=== PATIENT | male | born 1995 | race Caucasian/White ===

== ENCOUNTER 2016-07-02 20:46 | Emergency (ER) | payer MEDICARE, OTHER ==
[~2016-07-02] VITALS: Ht 160 cm; Wt 53.5 kg
[~2016-07-02 20:46] MED LIST: AZIT250T PO; FAMO-63 PO; NAPR375T3 PO; PRED20TA PO; PROAIR HFA8.5 GM INH; PSEU120T58 PO; SULF1TAB24 PO; TRAM-29 PO
[2016-07-02 21:00] VITALS: BP 115/68
--- NOTE | 2016-07-02 21:24 | PHYS DOC ---
Past Medical History Past Medical History: Asthma, Other Additional Past Medical Histor: explosive rage disorder, adhd, lead poison (hx ) poss MR? Past Surgical History: Tonsillectomy, Other Additional Past Surgical Histo: ADENOIDECTOMY, fundoplication Alcohol Use: Occasionally Drug Use: Marijuana Adult General Chief Complaint Chief Complaint: HEADACHE HPI HPI Patient is a 21 year old presents emergency department stating that he is having a severe headache in which he does note suffered from headaches in the past. He describes the headache as pressure type feeling. Denies injury or trauma. He states that this headache started yesterday. He has not taken anything for the pain and discomfort. He does state that the lights do bother his head. He denies any visual difficulty. He denies any nausea vomiting. Patient does state when he stands that it increases his headache to become worse as well. Review of Systems Review of Systems Constitutional: Denies fever or chills [] Eyes: Denies change in visual acuity, redness, or eye pain [] HENT: Denies nasal congestion or sore throat [] Respiratory: Denies cough or shortness of breath [] Cardiovascular: No additional information not addressed in HPI [] GI: Denies abdominal pain, nausea, vomiting, bloody stools or diarrhea [] : Denies dysuria or hematuria [] Musculoskeletal: Denies back pain or joint pain [] Integument: Denies rash or skin lesions [] Neurologic: headache, denies focal weakness or sensory changes [] Current Medications Current Medications Current Medications Medications (Trade) Dose Ordered Sig/Ramakrishna Start Time Stop Time Status Last Admin Dose Admin Acetaminophen (Tylenol) 650 mg 1X ONCE 07/02/16 21:30 07/02/16 21:31 DC 07/02/16 21:41 650 MG Diphenhydramine HCl (Benadryl) 25 mg 1X ONCE 07/02/16 21:30 07/02/16 21:31 DC 07/02/16 21:41 25 MG Metoclopramide HCl (Reglan) 10 mg 1X ONCE 07/02/16 21:30 07/02/16 21:31 DC 07/02/16 21:41 10 MG Allergies Allergies Allergies Coded Allergies Type Severity Reaction Last Updated Verified bethanechol Allergy Intermediate 11/14/14 Yes cisapride Allergy Intermediate 11/14/14 Yes Physical Exam Physical Exam Constitutional: Well developed, well nourished, no acute distress, non-toxic appearance. [] HENT: Normocephalic, atraumatic, bilateral external ears normal, oropharynx moist, no oral exudates, nose normal. Bilateral tympanic membranes appear to be normal. Throat with no erythematous or drainage. No postnasal drip noted. Eyes: PERRLA, EOMI, conjunctiva normal, no discharge. [] Neck: Normal range of motion, no tenderness, supple, no stridor. [] Cardiovascular:Heart rate regular rhythm, no murmur [] Lungs & Thorax: Bilateral breath sounds clear to auscultation [] Skin: Warm, dry, no erythema, no rash. [] Back: No tenderness Extremities: No tenderness, no cyanosis, no clubbing, ROM intact, no edema. [] Neurologic: Alert and oriented X 3, normal motor function, normal sensory function, no focal deficits noted. Cranial nerve II-XII intact Psychologic: Affect normal, judgement normal, mood normal. [] Current Patient Data Vital Signs Vital Signs Date Time Temp Pulse Resp B/P Pulse Ox O2 Delivery O2 Flow Rate FiO2 07/02/16 21:00 98.1 91 16 97 Room Air 98.1 EKG EKG [] Radiology/Procedures Radiology/Procedures [address] [place] [address] IMAGING REPORT Signed PATIENT: DIANA AWAN ACCOUNT: [id number] : 1995 LOCATION: ER AGE: 21 SEX: M EXAM STATUS: REG ER ORD. PHYSICIAN: MIAN JACKSON APRN REASON: severe head ache for the last 2 days PROCEDURE: HEAD WO CONTRAST PROCEDURE CT Head without contrast. HISTORY Headaches for [address] head was obtained. One or more of the following individualized dose reduction techniques were utilized for this exam: 1. Automated exposure control. 2. Adjustment of the mA and/or kV according to patient's size. 3. Use of iterative reconstruction technique. COMPARISON October 25, 2011. FINDINGS The ventricles are normal in size and configuration. There is no intracranial hemorrhage or extra-axial fluid collection. There is no mass effect or midline shift. Pinzon-white differentiation is preserved. There is no depressed skull fracture. The included paranasal sinuses and mastoid air cells are clear. IMPRESSION No acute intracranial findings. Electronically signed by: Sid Zelaya MD (Jul 02, 2016 22:10:48) DICTATED and SIGNED BY: SID ZELAYA MD DATE: 07/02/168 CC: MIAN JACKSON APRN; UNKNOWN PCP NAME ~ [] Course & Med Decision Making Course & Med Decision Making Pertinent Labs and Imaging studies reviewed. (See chart for details) Patient was provided with Tylenol, Benadryl and Reglan here in the emergency department. Patient states his headache is much better. CT scan was negative. Recommended patient to go home and rest in quiet dark environment. We'll provide him with a prescription for Reglan. Explained to parent at bedside as well as patient that he can take Benadryl every 6 hours and that he can take Tylenol every 4-6 hours not to exceed 4 g in a 24-hour. Parent and patient agree with discharge instructions treatment regimens and follow-up recommendations. Also recommended patient to avoid watching TV using any laptop devices or any text messaging as this may increase headaches. Patient parent agree with discharge instructions signs and symptoms to return back to emergency department as been provided. [] Dragon Disclaimer Dragon Disclaimer This electronic medical record was generated, in whole or in part, using a voice recognition dictation system. Departure Departure Impression: Primary Impression: Head ache Disposition: HOME, SELF-CARE Condition: STABLE Referrals: NO PCP (PCP) Patient Instructions: General Headache Without Cause, [id number] Additional Instructions: Home to rest in quiet dark environment. No use of cell phone's, text messaging and laptop computers or watching television as this may increase the headaches. Tylenol every 4-6 hours as needed for pain and discomfort. Benadryl may be also be taken every 4-6 hours as medication will cause drowsiness do not take any be alert and oriented. Medication as prescribed. He may also alternate Tylenol with ibuprofen as needed for pain and discomfort. Drink plenty of fluids. Follow-up to primary care physician in the next 5-7 days. Return back to emergency department for signs and symptoms of become worse. Scripts Metoclopramide Hcl (Reglan)10 Mg Tablet1 Tab PO TID PRN NAUSEA #90 TAB Prov:MIAN JACKSON APRN 07/02/16 MIAN JACKSON APRN Jul 02, 2016 21:24
[2016-07-02] MEDS ORDERED: ACETAMINOPHEN 325 MG TABLET. PO ONE (21:30)
[2016-07-02] MEDS ORDERED: DIPHENHYDRAMINE HCL 25 MG CAPSULE PO ONE (21:30)
[2016-07-02] MEDS ORDERED: METOCLOPRAMIDE 10 MG TABLET PO ONE (21:30)
--- NOTE | 2016-07-02 22:12 | RAD ---
PROCEDURE CT Head without contrast. HISTORY Headaches for [address] head was obtained. One or more of the following individualized dose reduction techniques were utilized for this exam: 1. Automated exposure control. 2. Adjustment of the mA and/or kV according to patient's size. 3. Use of iterative reconstruction technique. COMPARISON October 25, 2011. FINDINGS The ventricles are normal in size and configuration. There is no intracranial hemorrhage or extra-axial fluid collection. There is no mass effect or midline shift. Pinzon-white differentiation is preserved. There is no depressed skull fracture. The included paranasal sinuses and mastoid air cells are clear. IMPRESSION No acute intracranial findings. Electronically signed by: Sid Zelaya MD (Jul 02, 2016 22:10:48)
[2016-07-02] MEDS ORDERED: METO10TA81 PO (22:20)
== END 2016-07-02 22:34 | disposition home or self-care (01) ==
LOC: ER 20:46
DX: R51 Headache (principal); J45.909 Unspecified asthma, uncomplicated; F90.9 Attention-deficit hyperactivity disorder, unspecified type; F12.10 Cannabis abuse, uncomplicated; Z88.8 Allergy status to other drugs, medicaments and biological substances
CPT/HCPCS: 70450; 99284; J8597; Q0163

== ENCOUNTER 2016-11-16 11:22 | Emergency (ER) | payer MEDICARE, OTHER ==
[~2016-11-16 11:22] MED LIST changes: +METO10TA81 PO; -TRAM-29 PO; +TRAM-48 PO
[2016-11-16 11:24] VITALS: BP 145/76
[2016-11-16] MEDS ORDERED: PSEUDOEPHEDRINE 30 MG TABLET. PO STA (11:40)
[2016-11-16] MEDS ORDERED: PSEU120T58 PO (11:50)
[2016-11-16] MEDS ORDERED: PRED50TA PO (11:50)
[2016-11-16] MEDS ORDERED: BENZ100C PO (11:50)
--- NOTE | 2016-11-16 11:50 | PHYS DOC ---
Past Medical History Past Medical History: Asthma, Other Additional Past Medical Histor: explosive rage disorder, adhd, lead poison (hx ) poss MR? Past Surgical History: Tonsillectomy, Other Additional Past Surgical Histo: ADENOIDECTOMY, fundoplication Alcohol Use: Occasionally Drug Use: Marijuana Adult General Chief Complaint Chief Complaint: ASTHMA HPI HPI Patient is a 21 year old male with history of smoking who presents today complaining of nasal congestion that began 3 days ago. Patient is also complaining of coughing. Patient states he has used his inhaler but still feels nasally congested. He states the last time he had similar symptoms the had to give him pseudoephedrine. Review of Systems Review of Systems Constitutional: Denies fever or chills [] Eyes: Denies change in visual acuity, redness, or eye pain [] HENT: nasal congestion Respiratory: cough Cardiovascular: No additional information not addressed in HPI [] GI: Denies abdominal pain, nausea, vomiting, bloody stools or diarrhea [] : Denies dysuria or hematuria [] Musculoskeletal: Denies back pain or joint pain [] Integument: Denies rash or skin lesions [] Neurologic: Denies headache, focal weakness or sensory changes [] Endocrine: Denies polyuria or polydipsia [] Current Medications Current Medications Current Medications Medications (Trade) Dose Ordered Sig/Ramakrishna Start Time Stop Time Status Last Admin Dose Admin Benzonatate (Tessalon Perle) 100 mg 1X ONCE 11/16/16 11:45 11/16/16 11:46 UNV Prednisone (Prednisone) 60 mg 1X ONCE 11/16/16 11:45 11/16/16 11:46 UNV Pseudoephedrine HCl (Sudafed) 60 mg 1X STAT 11/16/16 11:40 11/16/16 11:41 UNV Allergies Allergies Allergies Coded Allergies Type Severity Reaction Last Updated Verified bethanechol Allergy Intermediate 11/14/14 Yes cisapride Allergy Intermediate 11/14/14 Yes Physical Exam Physical Exam Constitutional: Well developed, well nourished, no acute distress, non-toxic appearance. [] HENT: Normocephalic, atraumatic, bilateral external ears normal, oropharynx moist, no oral exudates, Patient sounds congested nasally. Eyes: PERRLA, EOMI, conjunctiva normal, no discharge. [] Neck: Normal range of motion, no tenderness, supple, no stridor. [] Cardiovascular:Heart rate regular rhythm, no murmur [] Lungs & Thorax: Bilateral breath sounds clear to auscultation [] Abdomen: Bowel sounds normal, soft, no tenderness, no masses, no pulsatile masses. [] Skin: Warm, dry, no erythema, no rash. [] Back: No tenderness, no CVA tenderness. [] Extremities: No tenderness, no cyanosis, no clubbing, ROM intact, no edema. [] Neurologic: Alert and oriented X 3, normal motor function, normal sensory function, no focal deficits noted. [] Psychologic: Affect normal, judgement normal, mood normal. [] EKG EKG [] Radiology/Procedures Radiology/Procedures [] Course & Med Decision Making Course & Med Decision Making Pertinent Labs and Imaging studies reviewed. (See chart for details) This is a 21-year-old male patient who presents with coughing and nasal congestion. He also has history of asthma. He has been using his inhaler with no relief of nasal congestion. He was discharged with pseudoephedrine, prednisone and Tessalon Perles. Encouraged to consider smoking cessation. Follow -up with PCP in one week. Dragon Disclaimer Dragon Disclaimer This electronic medical record was generated, in whole or in part, using a voice recognition dictation system. Departure Departure Impression: Primary Impression: URI (upper respiratory infection) Additional Impressions: Cough Asthma Disposition: 01 HOME, SELF-CARE Condition: STABLE Referrals: UNKNOWN PCP NAME (PCP) Follow-up with your doctor in one week Patient Instructions: Asthma, Adult, Cough, Adult, [id number], Upper Respiratory Infection, Adult, [id number] Additional Instructions: You were seen with symptoms consistent of an upper respiratory infection as well as asthma. Continue using your breathing treatments as prescribed by your doctor. Consider smoking cessation. Use the rest of the prescribed medicines as ordered. Scripts Pseudoephedrine Hcl (PSEUDOEPHEDRINE) 120 Mg Tablet.er 1 TAB PO BID, #30 TAB Prov: MUTUNGA,CATHY TIRE WRAPPER 11/16/16 Prednisone (PREDNISONE) 50 Mg Tablet 1 TAB PO DAILY, #4 TAB Prov: MUTUNGA,CATHY TIRE WRAPPER 17 Benzonatate (TESSALON PERLE) 100 Mg Capsule 1 CAP PO TID, #30 CAP Prov: MUTUNGA,CATHY TIRE WRAPPER 11/16/16 Problem Qualifiers Primary Impression: URI (upper respiratory infection) URI type: unspecified URI Qualified Codes: J06.9 - Acute upper respiratory infection, unspecified Additional Impressions: Asthma Asthma severity: mild intermittent Asthma complication type: uncomplicated Qualified Codes: J45.20 - Mild intermittent asthma, uncomplicated JEANECATHY TIRE WRAPPER Nov 16, 2016 11:50
[2016-11-16] MEDS ORDERED: BENZONATATE 100 MG CAPSULE. PO ONE (12:00)
[2016-11-16] MEDS ORDERED: predniSONE 20 MG TABLET PO ONE (12:00)
== END 2016-11-16 11:55 | disposition home or self-care (01) ==
LOC: ER 11:22
DX: J06.9 Acute upper respiratory infection, unspecified (principal); J45.20 Mild intermittent asthma, uncomplicated; F90.9 Attention-deficit hyperactivity disorder, unspecified type; F12.10 Cannabis abuse, uncomplicated; Z87.891 Personal history of nicotine dependence; Z88.8 Allergy status to other drugs, medicaments and biological substances
CPT/HCPCS: 99284; J7512

== ENCOUNTER 2016-11-24 16:47 | Emergency (ER) | payer MEDICARE, OTHER ==
[~2016-11-24] VITALS: Ht 160 cm; Wt 53.5 kg
[~2016-11-24 16:47] MED LIST changes: +BENZ100C PO; +PRED50TA PO
[2016-11-24 17:07] VITALS: BP 123/73
[2016-11-24] MEDS ORDERED: PRED20TA PO (17:21)
--- NOTE | 2016-11-24 17:21 | PHYS DOC ---
Past Medical History Past Medical History: Asthma, Bipolar, Other Additional Past Medical Histor: ADHD Past Surgical History: Tonsillectomy, Other Additional Past Surgical Histo: FUNDAL SURGERY/STOMACH Alcohol Use: Occasionally Drug Use: Marijuana Adult General Chief Complaint Chief Complaint: SKIN RASH/ABSCESS [facility] Patient is a 21 year old male presents to the emergency department stating that he has a rash on bilateral legs bilateral arms and on his balls. Patient states that the rash developed today. He states he believes that it's poison irma. However he has not been out in the weeds that he can recall. Patient states that he itches and monae. Denies any drainage or discharge coming from the area. Patient denies any fever, chills he denies any shortness of air difficulty breathing. Review of Systems Review of Systems Constitutional: Denies fever or chills [] Eyes: Denies change in visual acuity, redness, or eye pain [] HENT: Denies nasal congestion or sore throat [] Respiratory: Denies cough or shortness of breath [] Cardiovascular: No additional information not addressed in HPI [] GI: Denies abdominal pain, nausea, vomiting, bloody stools or diarrhea [] : Denies dysuria or hematuria [] Musculoskeletal: Denies back pain or joint pain [] Integument: rash denies skin lesions [] Neurologic: Denies headache, focal weakness or sensory changes [] Endocrine: Denies polyuria or polydipsia [] Allergies Allergies Allergies Coded Allergies Type Severity Reaction Last Updated Verified bethanechol Allergy Intermediate 11/14/14 Yes cisapride Allergy Intermediate 11/14/14 Yes Physical Exam Physical Exam Constitutional: Well developed, well nourished, no acute distress, non-toxic appearance. [] HENT: Normocephalic, atraumatic, bilateral external ears normal, oropharynx moist, no oral exudates, nose normal. [] Eyes: PERRLA, EOMI, conjunctiva normal, no discharge. [] Neck: Normal range of motion, no tenderness, supple, no stridor. [] Cardiovascular:Heart rate regular rhythm, no murmur [] Lungs & Thorax: Bilateral breath sounds clear to auscultation [] Skin: Warm, dry, no erythema, red rash noted on bilateral arms that does not appear to be raised does not appear to have any pustulous. Back: No tenderness Extremities: No tenderness, no cyanosis, no clubbing, ROM intact, no edema. [] Neurologic: Alert and oriented X 3, normal motor function, normal sensory function, no focal deficits noted. [] Psychologic: Affect normal, judgement normal, mood normal. [] Current Patient Data Vital Signs Vital Signs Date Time Temp Pulse Resp B/P (MAP) Pulse Ox O2 Delivery O2 Flow Rate FiO2 11/24/16 17:07 98.2 72 18 97 Room Air 98.2 EKG EKG [] Radiology/Procedures Radiology/Procedures [] Course & Med Decision Making Course & Med Decision Making Pertinent Labs and Imaging studies reviewed. (See chart for details) Patient states that he always gets a shot when this occurs. We'll provide him with a Solu-Medrol injection. Recommended Benadryl 25 mg every 6 hours for itching and irritation. Also recommended prednisone. Also recommended keeping the area clean dry and cool. Patient be encouraged follow-up with primary care physician in one week. Since symptoms to return back to emergency department as been provided. Patient agrees with discharge instructions treatment regimens and follow-up recommendations. Patient was provided with answers of all of his questions. [] Dragon Disclaimer Dragon Disclaimer This electronic medical record was generated, in whole or in part, using a voice recognition dictation system. Departure Departure Impression: Primary Impression: Contact dermatitis Disposition: 01 HOME, SELF-CARE Condition: STABLE Referrals: QING MCKOY MD (PCP) Patient Instructions: Contact Dermatitis, [id number] Additional Instructions: Activity as tolerated. Medications as prescribed. Benadryl 25 mg every 6 hours to help with itching and irritation. Keep the areas clean dry and cool. Tylenol or ibuprofen for fever chills or generalized body aches and discomfort. Follow-up to primary care physician next week. Return back to emergency prior signs symptoms become worse. Scripts Prednisone (PREDNISONE) 20 Mg Tablet 40 MG PO DAILY, #14 TAB Prov: MIAN JACKSON APRN 11/24/16 MIAN JACKSON APRN Nov 24, 2016 17:21
[2016-11-24] MEDS ORDERED: methylPREDNISolone SOD SUCC PF 125 MG/2 ML VIAL. IM ONE (17:30)
== END 2016-11-24 17:36 | disposition home or self-care (01) ==
LOC: ER 16:47
DX: L25.9 Unspecified contact dermatitis, unspecified cause (principal); J45.909 Unspecified asthma, uncomplicated; F31.9 Bipolar disorder, unspecified; F12.10 Cannabis abuse, uncomplicated; F90.9 Attention-deficit hyperactivity disorder, unspecified type; Z88.8 Allergy status to other drugs, medicaments and biological substances
CPT/HCPCS: 96372; 99283; J2930

== ENCOUNTER 2016-11-27 17:55 | Emergency (ER) | payer MEDICARE, OTHER ==
[~2016-11-27] VITALS: Ht 160 cm; Wt 53.5 kg
[2016-11-27 18:14] VITALS: BP 115/60
[2016-11-27] MEDS ORDERED: TRIA15OI TP (18:44)
--- NOTE | 2016-11-27 18:44 | PHYS DOC ---
Past Medical History Past Medical History: Asthma, Bipolar, Other Additional Past Medical Histor: ADHD Past Surgical History: Tonsillectomy, Other Additional Past Surgical Histo: FUNDAL SURGERY/STOMACH Alcohol Use: Occasionally Drug Use: Marijuana Adult General Chief Complaint Chief Complaint: WOUND CHECK [facility] HPI Patient is a 21 year old male presents to the emergency department stating that he was seen here 2 days ago for a rash. Patient states he's been taking Benadryl every 4-6 hours. He states his been taken for steroid as prescribed. He states that the rash continues to get worse. Parent comes in with him at this time and states that it spread throughout his body now. He denies any fever , chills or any nausea vomiting. Patient states he does have a follow-up visit with his primary care physician later in the week. Review of Systems Review of Systems Constitutional: Denies fever or chills [] Eyes: Denies change in visual acuity, redness, or eye pain [] HENT: Denies nasal congestion or sore throat [] Respiratory: Denies cough or shortness of breath [] Cardiovascular: No additional information not addressed in HPI [] GI: Denies abdominal pain, nausea, vomiting, bloody stools or diarrhea [] : Denies dysuria or hematuria [] Musculoskeletal: Denies back pain or joint pain [] Integument: Complaint of generalized rash throughout the body. Neurologic: Denies headache, focal weakness or sensory changes [] Endocrine: Denies polyuria or polydipsia [] Allergies Allergies Allergies Coded Allergies Type Severity Reaction Last Updated Verified bethanechol Allergy Intermediate 11/14/14 Yes cisapride Allergy Intermediate 11/14/14 Yes Physical Exam Physical Exam Constitutional: Well developed, well nourished, no acute distress, non-toxic appearance. [] HENT: Normocephalic, atraumatic, bilateral external ears normal, oropharynx moist, no oral exudates, nose normal. [] Eyes: PERRLA, EOMI, conjunctiva normal, no discharge. [] Neck: Normal range of motion, no tenderness, supple, no stridor. [] Cardiovascular:Heart rate regular rhythm, no murmur [] Lungs & Thorax: Bilateral breath sounds clear to auscultation [] Skin: Warm, dry, no erythema, patient with red areas on bilateral arms chest as well. Patient with no raised lesions noted no drainage or discharge noted. Back: No tenderness Extremities: No tenderness, no cyanosis, no clubbing, ROM intact, no edema. [] Neurologic: Alert and oriented X 3, normal motor function, normal sensory function, no focal deficits noted. [] Psychologic: Affect normal, judgement normal, mood normal. [] Current Patient Data Vital Signs Vital Signs Date Time Temp Pulse Resp B/P (MAP) Pulse Ox O2 Delivery O2 Flow Rate FiO2 11/27/16 18:14 98.8 87 16 96 Room Air 98.8 EKG EKG [] Radiology/Procedures Radiology/Procedures [] Course & Med Decision Making Course & Med Decision Making Pertinent Labs and Imaging studies reviewed. (See chart for details) Recommended that the patient continue using the Benadryl 25 mg every 4-6 hours keeping the area clean dry and cool. Pepcid may also be added for a potential allergic reaction. Also recommended continuing with the prednisone. We'll provide her medical and cream. Recommended that he keep his follow-up appointment later in the week with his primary care physician. Patient agrees with discharge instructions, treatment regimens and follow-up recommendations. Signs and symptoms to return back to emergency department has been provided. [] Dragon Disclaimer Dragon Disclaimer This electronic medical record was generated, in whole or in part, using a voice recognition dictation system. Departure Departure Impression: Primary Impression: Contact dermatitis Disposition: 01 HOME, SELF-CARE Condition: STABLE Referrals: QING MCKOY MD (PCP) Patient Instructions: Contact Dermatitis, [id number] Additional Instructions: Continue the medications as prescribed such as Benadryl 25 mg every 4-6 hours. This medication will cause drowsiness do not take any be alert and oriented. Pepcid 20 mg daily. Continue with the prednisone in which you have been provided to days ago. Placed the cream on the body instructed. Follow-up with your primary care physician in the next week. Return back to emergency prior signs symptoms become worse. Keep the areas clean dry and cool. Scripts Triamcinolone Acetonide (TRIAMCINOLONE ACETONIDE 0.1% OINT) 15 Gm Oint...g. 1 SANDER TP BID for WOUND CARE, #1 TUBE MIX WITH EUCERIN DIRECTED BY PHYSICIAN Prov: MIAN JACKSON APRN 11/27/16 MIAN JACKSON APRN Nov 27, 2016 18:44
== END 2016-11-27 19:00 | disposition home or self-care (01) ==
LOC: ER 17:55
DX: L25.9 Unspecified contact dermatitis, unspecified cause (principal); J45.909 Unspecified asthma, uncomplicated; F90.9 Attention-deficit hyperactivity disorder, unspecified type; Z88.8 Allergy status to other drugs, medicaments and biological substances
CPT/HCPCS: 99283

== ENCOUNTER 2017-01-12 05:37 | Emergency (ER) | payer MEDICARE, OTHER ==
[~2017-01-12] VITALS: Ht 160 cm; Wt 53.5 kg
[~2017-01-12 05:37] MED LIST changes: +NAPR-695 PO; -NAPR375T3 PO; +TRIA15OI TP
[2017-01-12 05:54] VITALS: BP 137/83
--- NOTE | 2017-01-12 06:16 | PHYS DOC ---
Past Medical History Past Medical History: Asthma, Bipolar, Other Additional Past Medical Histor: ADHD Past Surgical History: Tonsillectomy, Other Additional Past Surgical Histo: FUNDAL SURGERY/STOMACH Alcohol Use: Occasionally Drug Use: Marijuana Adult General Chief Complaint Chief Complaint: FOOT INJURY PAIN [facility] HPI Patient is a pleasant 21-year-old male initiated for p.m. neuropathy bathtub on the plantar surface of the right foot. He was wearing shoes at the time. He ambulated and worked all day this morning about 4 AM when he attempted to take sure off he noted increased pain with direct pressure over the foot. There is some mild tingling to the pinky toe. Patient denies any prior history of injury to this foot. He denies any ankle pain and knee pain denies any weakness in the muscles within the foot. Patient's pain is an 8 of 10 at this time. Is not taking [id number] medications to make it better. Patient's pain is worsened with an ablation and direct pressure Review of Systems Review of Systems Constitutional: Denies fever or chills [] Eyes: Denies change in visual acuity, redness, or eye pain [] HENT: Denies nasal congestion or sore throat [] Respiratory: Denies cough or shortness of breath [] Cardiovascular: No additional information not addressed in HPI [] GI: Denies abdominal pain, nausea, vomiting, bloody stools or diarrhea [] : Denies dysuria or hematuria [] Musculoskeletal: Denies back pain or joint pain as complaint is mainly foot pain Integument: Denies rash or skin lesions [] Neurologic: Denies headache, focal weakness or patient does complain of mild numbness and tingling to the pinky toe. Endocrine: Denies polyuria or polydipsia [] Current Medications Current Medications Current Medications Medications (Trade) Dose Ordered Sig/Ramakrishna Start Time Stop Time Status Last Admin Dose Admin Acetaminophen/ Hydrocodone Bitart (Lortab 5/325) 1 tab 1X ONCE 01/12/17 06:30 01/12/17 06:31 DC 01/12/17 06:44 1 TAB Allergies Allergies Allergies Coded Allergies Type Severity Reaction Last Updated Verified bethanechol Allergy Intermediate 11/14/14 Yes cisapride Allergy Intermediate 11/14/14 Yes Physical Exam Physical Exam Vital signs recorded on the chart within normal limits. Constitutional: Well developed, well nourished, patient is somewhat disheveled and dirty and some acute distress secondary to pain in the foot.] Cardiovascular:Heart rate regular rhythm, no murmur [] Lungs & Thorax: Bilateral breath sounds clear to auscultation [] Extremities: , no cyanosis, no clubbing, ROM intact, no edema. Patient hasn't tenderness to palpation over the midfoot with no obvious deformity. He's had minimal if any soft tissue swelling. He's had brisk capillary refill +2 brisk peripheral pulses at the dorsalis pedis and posterior tibialis is +2. Patient has sensation to light touch and proprioception over the entire foot with the exception of the lateral aspect of the pinky toe. Patient has no tenderness to palpation or deformity to the fifth metatarsal, medial lateral malleolus, has negative anterior posterior draw on the ankle. Patient has flexion at the toes and extension and plantar flexion of the foot without issue or loss of strength. Neurologic: Alert and oriented X 3, normal motor function, normal sensory function, no focal deficits noted. [] Psychologic: he is very anxious but given his bipolar disorder this is not a typical for patient Current Patient Data Vital Signs Vital Signs Date Time Temp Pulse Resp B/P (MAP) Pulse Ox O2 Delivery O2 Flow Rate FiO2 01/12/17 05:54 98.0 76 20 98 Room Air 98.0 EKG EKG [] Radiology/Procedures Radiology/Procedures []3 view x-ray of the patient's foot read by me 6:59 AM 01/12/2017 demonstrates no acute fracture no soft tissue swelling no foreign body underneath the soft tissue. Course & Med Decision Making Course & Med Decision Making Pertinent Labs and Imaging studies reviewed. (See chart for details) []A she presents with this crush injury to the foot sustained 12 hours prior to arrival. Patient has no obvious signs of compartment syndrome, fracture or Lisfranc's deformity. I will x-ray this patient's foot provided some oral analgesics and reevaluated. At this point he is neurovascular intact with some small portion of the lateral aspect of the pinky toe without sensation to light touch this is not dermatomal in nature. Time is now 6:08 AM Patient's mother has gotten increasingly upset waiting for x-ray to be completed. Unfortunately x-ray tech at the time is in the ICU during portable films. Time is now 6:20 AM Patient's mother has again started making comments rudely to the staff and agitation I will we are waiting for x-ray to be completed. Time is now 6:40 AM patient is being reassured that the x-ray setup technician is about their presence and will complete his films as soon as we can arrange. Allen Disclaimer Dragon Disclaimer This electronic medical record was generated, in whole or in part, using a voice recognition dictation system. Departure Departure Impression: Primary Impression: Crush injury of foot Additional Impression: Foot sprain Disposition: 01 HOME, SELF-CARE Condition: STABLE Referrals: QING MCKOY MD (PCP) AMADOU VASQUEZ MD Patient Instructions: Foot Sprain Additional Instructions: My discharge plan Follow up: In addition patient is asked to followup with their primary doctor, within a week for followup examination and to address patient's ongoing medical conditions. Patient is advised that in the Emergency Department primary complaints are addressed and only in light of known signs and symptoms. Patient should return immediately to the emergency department if new signs and symptoms develop or patient's condition worsens in any way. At time of discharge patient was in stable condition and had verbalized understanding of the discharge instructions. Although there is no acute fracture noted on x-ray today this does not mean subtle fractures are not missed on initial presentation. If your symptoms are not improved within 1 week or if symptoms worsen despite oral treatment with pain medications I would advise follow-up with your primary care doctor to have a repeat set of x-rays completed to ensure no subtle fractures were missed. Please understand that sometimes x-rays are missed red and if there is a misreading of your x-rays she will be contacted by the emergency room physician to talk about appropriate treatment. Scripts Acetaminophen (TYLENOL) 325 Mg Tablet 1-2 TAB PO QID, #60 TAB 2 Refills Prov: MIKHAIL FAM MD 01/12/17 Naproxen (NAPROSYN) 500 Mg Tablet 1 TAB PO BID, #14 TAB 1 Refill Prov: MIKHAIL FAM MD 01/12/17 Problem Qualifiers MIKHAIL FAM MD Jan 12, 2017 06:16
[2017-01-12] MEDS ORDERED: HYDROcodone/APAP 5/325MG 1 TAB TABLET PO ONE (06:30)
[2017-01-12] MEDS ORDERED: ACET325T9 PO (07:06)
[2017-01-12] MEDS ORDERED: NAPR500T PO (07:06)
--- NOTE | 2017-01-12 07:53 | RAD ---
Right foot 3 views. History: Trauma, injury right foot last night 3 views were taken of the right foot. There is not evidence of an acute fracture or osseous abnormality. Impression: 1. Negative right foot.
== END 2017-01-12 07:23 | disposition home or self-care (01) ==
LOC: ER 05:37
DX: S93.601A Unspecified sprain of right foot, initial encounter (principal); F90.9 Attention-deficit hyperactivity disorder, unspecified type; J45.909 Unspecified asthma, uncomplicated; F31.9 Bipolar disorder, unspecified; Z88.8 Allergy status to other drugs, medicaments and biological substances; X58.XXXA Exposure to other specified factors, initial encounter; Y93.89 Activity, other specified; Y99.8 Other external cause status; Y92.89 Other specified places as the place of occurrence of the external cause
CPT/HCPCS: 73630; 99284

== ENCOUNTER 2017-07-05 12:47 | Emergency (ER) | payer MEDICARE, OTHER | END 2017-07-05 13:54 | disposition home or self-care (01) | LOC: ER 12:47 | DX: J06.9 Acute upper respiratory infection, unspecified (principal); H91.92 Unspecified hearing loss, left ear; J45.909 Unspecified asthma, uncomplicated; F90.9 Attention-deficit hyperactivity disorder, unspecified type; F31.9 Bipolar disorder, unspecified; F17.200 Nicotine dependence, unspecified, uncomplicated; F12.10 Cannabis abuse, uncomplicated; Z88.8 Allergy status to other drugs, medicaments and biological substances | CPT/HCPCS: 99283 ==

== ENCOUNTER 2017-09-22 23:24 | Emergency (ER) | payer MEDICARE, OTHER | END 2017-09-23 00:16 | disposition home or self-care (01) | LOC: ER 23:24 | DX: S80.862A Insect bite (nonvenomous), left lower leg, initial encounter (principal); S80.861A Insect bite (nonvenomous), right lower leg, initial encounter; F31.9 Bipolar disorder, unspecified; J45.909 Unspecified asthma, uncomplicated; F12.10 Cannabis abuse, uncomplicated; F90.9 Attention-deficit hyperactivity disorder, unspecified type; Z88.8 Allergy status to other drugs, medicaments and biological substances; W57.XXXA Bitten or stung by nonvenomous insect and other nonvenomous arthropods, initial encounter; Y93.89 Activity, other specified; Y99.8 Other external cause status; Y92.89 Other specified places as the place of occurrence of the external cause | CPT/HCPCS: 99283 ==

== ENCOUNTER 2017-12-12 18:48 | Emergency (ER) | payer MEDICARE, OTHER ==
[2017-09-22 23:33] VITALS: BP 105/68
[~2017-12-12 18:48] MED LIST changes: +ACET325T9 PO; +HYDR25TA PO; +LORA1TAB47 PO; +NAPR-683 PO
== END 2017-12-12 19:20 | disposition left against medical advice (07) ==
LOC: ER 18:48
DX: R09.81 Nasal congestion (principal); Z53.21 Procedure and treatment not carried out due to patient leaving prior to being seen by health care provider

== ENCOUNTER 2017-12-14 14:24 | Emergency (ER) | payer MEDICARE, OTHER ==
[~2017-12-14] VITALS: Ht 160 cm; Wt 53.5 kg
[2017-12-14 15:00] VITALS: BP 112/63
[2017-12-14] MEDS ORDERED: predniSONE 20 MG TABLET PO ONE (15:30)
[2017-12-14] MEDS ORDERED: BENZONATATE 100 MG CAPSULE. PO ONE (15:30)
[2017-12-14] MEDS ORDERED: IPRATRPIUM/ALBUTEROL 0.5/2.5MG 3 ML NEBU. NEB ONE (15:30)
--- NOTE | 2017-12-14 15:56 | PHYS DOC ---
Past Medical History Past Medical History: Asthma, Bipolar, Other Additional Past Medical Histor: ADHD Past Surgical History: Tonsillectomy, Other Additional Past Surgical Histo: FUNDOPLICATION, ADDENOIDECTOMY Alcohol Use: Occasionally Drug Use: Marijuana Adult General Chief Complaint Chief Complaint: COUGH HPI HPI Patient is a 22 year old male with history of asthma, bipolar, smoking who presents today complaining of cough and nasal congestion for 4 days. Patient states he has also had subjective fevers. He states he has tried taking prednisone from an old prescription with no relief. Denies any chest pain. Denies any shortness of breath. He states he has history of bronchitis. Review of Systems Review of Systems Constitutional: Denies fever or chills [] Eyes: Denies change in visual acuity, redness, or eye pain [] HENT: Reports nasal congestion, denies sore throat [] Respiratory: Reports cough, denies shortness of breath [] Cardiovascular: No additional information not addressed in HPI [] GI: Denies abdominal pain, nausea, vomiting, bloody stools or diarrhea [] : Denies dysuria or hematuria [] Musculoskeletal: Denies back pain or joint pain [] Integument: Denies rash Neurologic: Denies headache, focal weakness or sensory changes [] All other systems were reviewed and found to be within normal limits, except as documented in this note. Current Medications Current Medications Current Medications Medications (Trade) Dose Ordered Sig/Ramakrishna Start Time Stop Time Status Last Admin Dose Admin Albuterol/ Ipratropium (Duoneb) 3 ml 1X ONCE 12/14/17 15:30 12/14/17 15:33 DC 12/14/17 15:56 3 ML Benzonatate (Tessalon Perle) 100 mg 1X ONCE 12/14/17 15:30 12/14/17 15:33 DC 12/14/17 15:48 100 MG Prednisone (Prednisone) 50 mg 1X ONCE 12/14/17 15:30 12/14/17 15:33 DC 12/14/17 15:45 50 MG Allergies Allergies Allergies Coded Allergies Type Severity Reaction Last Updated Verified bethanechol Allergy Intermediate 11/14/14 Yes cisapride Allergy Intermediate 11/14/14 Yes Physical Exam Physical Exam Constitutional: Well developed, well nourished, no acute distress, non-toxic appearance. [] HENT: Normocephalic, atraumatic, bilateral external ears normal, oropharynx moist, no oral exudates, nose normal. [] Eyes: PERRLA, EOMI, conjunctiva normal, no discharge. [] Neck: Normal range of motion, no tenderness, supple, no stridor. [] Cardiovascular:Heart rate regular rhythm, no murmur [] Lungs & Thorax: Slight wheezing to posterior lung bases, the rest of the lung bases are clear. Abdomen: Bowel sounds normal, soft, no tenderness, no masses, no pulsatile masses. [] Skin: Warm, dry, no erythema, no rash. [] Back: No tenderness, no CVA tenderness. [] Extremities: No tenderness, no cyanosis, no clubbing, ROM intact, no edema. [] Neurologic: Alert and oriented X 3, normal motor function, normal sensory function, no focal deficits noted. [] Psychologic: Affect normal, judgement normal, mood normal. [] Current Patient Data Vital Signs Vital Signs Date Time Temp Pulse Resp B/P (MAP) Pulse Ox O2 Delivery O2 Flow Rate FiO2 12/14/17 15:59 97 Room Air EKG EKG [] Radiology/Procedures Radiology/Procedures []PROCEDURE: CHEST PA & LATERAL CHEST PA LATERAL Clinical indications: COUGH COMPARISON: March 29, 2016. Findings: There is mild linear atelectasis within right middle lobe. No consolidative pneumonia is evident. No pleural effusion or pneumothorax is seen. The heart size, pulmonary vasculature, mediastinum and both bhavani are unremarkable. The osseous structures appear intact. Impression: Mild linear atelectasis within the right middle lobe. No consolidative pneumonia. Electronically signed by: Jacinda Arroyo MD (12/14/2017 4:19 PM) [facility] DICTATED and SIGNED BY: JACINDA ARROYO MD DATE: 12/14/17 161 Course & Med Decision Making Course & Med Decision Making Pertinent Labs and Imaging studies reviewed. (See chart for details) This is a 22-year-old male patient presenting to the ED today with complaints of cough and nasal congestion. Chest x-ray interpreted by radiologist as negative for any acute findings. Patient's symptoms are likely viral. Has history of bronchitis. Will be discharged with albuterol inhaler prednisone and Tessalon Perles. Follow-up with PCP in 1-2 weeks. Also encouraged to consider smoking cessation. Dragon Disclaimer Dragon Disclaimer This electronic medical record was generated, in whole or in part, using a voice recognition dictation system. Departure Departure Impression: Primary Impression: Acute bronchitis Additional Impressions: Upper respiratory infection Smoking addiction Disposition: 01 HOME, SELF-CARE Condition: STABLE Referrals: QING MCKOY MD (PCP) Follow-up in 1-2 weeks Patient Instructions: Acute Bronchitis, Smoking Cessation, Tips For Success, Upper Respiratory Infection, Adult Additional Instructions: You were seen in the emergency room with symptoms consistent of an upper respiratory infection as well as viral bronchitis. Use the prescribed medications as ordered. Follow-up with your own doctor in 1-2 weeks. Come back to the ED at any point symptoms worsen. Consider smoking cessation Scripts Prednisone (PREDNISONE) 50 Mg Tablet 1 TAB PO DAILY, #5 TAB Prov: CATHY CHING APRN 12/14/17 Benzonatate (TESSALON PERLE) 100 Mg Capsule 1 CAP PO TID, #21 CAP Prov: CATHY CHING APRN 12/14/17 Albuterol Sulfate (VENTOLIN HFA INHALER) 18 Gm Hfa.aer.ad 2 PUFF INH Q4HRS for FOR ASTHMA, #1 INHALER 0 Refills Prov: CATHY CHING APRN 12/14/17 Problem Qualifiers Primary Impression: Acute bronchitis Bronchitis organism: unspecified organism Qualified Codes: J20.9 - Acute bronchitis, unspecified Additional Impressions: Upper respiratory infection URI type: unspecified URI Qualified Codes: J06.9 - Acute upper respiratory infection, unspecified CATHY CHING APRN Dec 14, 2017 15:55
--- NOTE | 2017-12-14 16:22 | RAD ---
CHEST PA LATERAL Clinical indications: COUGH COMPARISON: March 29, 2016. Findings: There is mild linear atelectasis within right middle lobe. No consolidative pneumonia is evident. No pleural effusion or pneumothorax is seen. The heart size, pulmonary vasculature, mediastinum and both bhavani are unremarkable. The osseous structures appear intact. Impression: Mild linear atelectasis within the right middle lobe. No consolidative pneumonia. Electronically signed by: Brian Arroyo MD (12/14/2017 4:19 PM) [facility]
[2017-12-14] MEDS ORDERED: VENTOLIN HFA18 GM INH (16:24)
[2017-12-14] MEDS ORDERED: BENZ100C PO (16:24)
[2017-12-14] MEDS ORDERED: PRED50TA PO (16:24)
== END 2017-12-14 16:41 | disposition home or self-care (01) ==
LOC: ER 14:24
DX: J20.9 Acute bronchitis, unspecified (principal); J06.9 Acute upper respiratory infection, unspecified; F17.200 Nicotine dependence, unspecified, uncomplicated; F12.10 Cannabis abuse, uncomplicated; Z90.89 Acquired absence of other organs; Z88.8 Allergy status to other drugs, medicaments and biological substances
CPT/HCPCS: 71046; 94640; 99284; J7512; J7620; 96374

== ENCOUNTER 2018-03-15 20:50 | Emergency (ER) | payer MEDICARE, OTHER ==
[~2018-03-15] VITALS: Ht 160 cm; Wt 53.5 kg
[~2018-03-15 20:50] MED LIST changes: +ALBU2.5V8 INH; -PROAIR HFA8.5 GM INH; +VENTOLIN HFA18 GM INH
[2018-03-15] MEDS ORDERED: IV NORMAL SALINE 1000ML BAG 1,000 ML IV ONE (21:15)
--- NOTE | 2018-03-15 21:26 | PHYS DOC ---
Past Medical History Past Medical History: Asthma, Bipolar, Other Additional Past Medical Histor: ADHD Past Surgical History: Tonsillectomy, Other Additional Past Surgical Histo: FUNDOPLICATION, ADDENOIDECTOMY Alcohol Use: Occasionally Drug Use: Marijuana Adult General Chief Complaint Chief Complaint: ABDOMINAL PAIN HPI HPI Patient is a 23 year old male who presents for evaluation of nausea, vomiting, diarrhea, and diffuse cramping abd pain for the past 2 days. Pt reports that his entire family went out to lunch yesterday around 1230pm and ate burgers with lettuce. Around 3-4 pm that same day they all began to experience nausea, vomiting, diarrhea, and diffuse abd pain which has persisted since. He was unable to sleep the previous night due to the Sx. The abd pain is diffuse, intermittent and cramping in quality. He has not experienced these Sx in the past. The patient reports he has been unable to keep any food down and has only been able to drink a few sips of lemon [place] soda. Denies fevers, flank pain, SOB , hematochezia, and hematemesis. No other Sx or complaints at this time. Review of Systems Review of Systems Constitutional: + chills and diaphoresis. Denies fever Eyes: Denies change in visual acuity, redness, or eye pain [] HENT: Denies nasal congestion or sore throat [] Respiratory: Denies cough or shortness of breath [] Cardiovascular: No additional information not addressed in HPI [] GI: + diffuse abd pain, +vomiting and nausea, + diarrhea, denies hematochezia and hematemesis. : Denies dysuria or hematuria [] Musculoskeletal: Denies back pain or joint pain [] Integument: Denies rash or skin lesions [] Neurologic: Denies headache, focal weakness or sensory changes [] All other systems were reviewed and found to be within normal limits, except as documented in this note. Current Medications Current Medications Current Medications Medications (Trade) Dose Ordered Sig/Ramakrishna Start Time Stop Time Status Last Admin Dose Admin Ondansetron HCl (Zofran) 4 mg 1X ONCE 03/15/18 21:30 03/15/18 21:31 DC 03/15/18 21:33 4 MG Sodium Chloride 1,000 ml @ 1,000 mls/hr 1X ONCE 03/15/18 21:15 03/15/18 22:14 DC 03/15/18 21:33 1,000 MLS/HR Allergies Allergies Allergies Coded Allergies Type Severity Reaction Last Updated Verified bethanechol Allergy Intermediate 11/14/14 Yes cisapride Allergy Intermediate 11/14/14 Yes Physical Exam Physical Exam Constitutional: Well developed, well nourished, no acute distress, non-toxic appearance. [] HENT: Normocephalic, atraumatic, bilateral external ears normal, oropharynx moist, no oral exudates, nose normal. [] Eyes: PERRLA, EOMI, conjunctiva normal, no discharge. [] Neck: Normal range of motion, no tenderness, supple, no stridor. [] Cardiovascular:Heart rate regular rhythm, no murmur [] Lungs & Thorax: Bilateral breath sounds clear to auscultation [] Abdomen: Diffuse abd TTP mildly worse in the LLQ. Negative murphys, no TTP over mcburneys point, negative Rovsings sign. No rebound, rigidity or guarding. Bowel sounds normoactive. Skin: Warm, dry, no erythema, no rash. [] Back: No tenderness, no CVA tenderness. [] Extremities: No tenderness, no cyanosis, no clubbing, ROM intact, no edema. [] Neurologic: Alert and oriented X 3, normal motor function, normal sensory function, no focal deficits noted. [] Psychologic: Affect normal, judgement normal, mood normal. [] Current Patient Data Vital Signs Vital Signs Date Time Temp Pulse Resp B/P (MAP) Pulse Ox O2 Delivery O2 Flow Rate FiO2 03/15/18 22:30 82 14 92/60 (71) 97 Room Air 03/15/18 20:55 97.6 97.6 Lab Values Laboratory Tests Test 03/15/18 21:30 White Blood Count 4.1 x10^3/uL (4.0-11.0) Red Blood Count 5.02 x10^6/uL (4.30-5.70) Hemoglobin 15.7 g/dL (13.0-17.5) Hematocrit 45.6 % (39.0-53.0) Mean Corpuscular Volume 91 fL (79-100) Mean Corpuscular Hemoglobin 31 pg (25-35) Mean Corpuscular Hemoglobin Concent 34 g/dL (31-37) Red Cell Distribution Width 13.6 % (11.5-14.5) Platelet Count 129 x10^3/uL (140-400) L Neutrophils (%) (Auto) 58 % (31-73) Lymphocytes (%) (Auto) 31 % (24-48) Monocytes (%) (Auto) 10 % (0-9) H Eosinophils (%) (Auto) 1 % (0-3) Basophils (%) (Auto) 0 % (0-3) Neutrophils # (Auto) 2.4 x10^3uL (1.8-7.7) Lymphocytes # (Auto) 1.3 x10^3/uL (1.0-4.8) Monocytes # (Auto) 0.4 x10^3/uL (0.0-1.1) Eosinophils # (Auto) 0.0 x10^3/uL (0.0-0.7) Basophils # (Auto) 0.0 x10^3/uL (0.0-0.2) Sodium Level 140 mmol/L (136-145) Potassium Level 3.9 mmol/L (3.5-5.1) Chloride Level 102 mmol/L (98-107) Carbon Dioxide Level 27 mmol/L (21-32) Anion Gap 11 (6-14) Blood Urea Nitrogen 16 mg/dL (8-26) Creatinine 0.9 mg/dL (0.7-1.3) Estimated GFR (Cockcroft-Gault) 102.8 BUN/Creatinine Ratio 18 (6-20) Glucose Level 99 mg/dL (70-99) Calcium Level 8.9 mg/dL (8.5-10.1) Total Bilirubin 0.3 mg/dL (0.2-1.0) Aspartate Amino Transferase (AST) 22 U/L (15-37) Alanine Aminotransferase (ALT) 28 U/L (16-63) Alkaline Phosphatase 94 U/L (46-116) Total Protein 7.0 g/dL (6.4-8.2) Albumin 3.8 g/dL (3.4-5.0) Albumin/Globulin Ratio 1.2 (1.0-1.7) Lipase 172 U/L (73-393) Laboratory Tests 03/15/18 21:30 Laboratory Tests 03/15/18 21:30 EKG EKG [] Radiology/Procedures Radiology/Procedures [] Course & Med Decision Making Course & Med Decision Making Pertinent Labs and Imaging studies reviewed. (See chart for details) Assessment: 23 y/o male presents for evaluation nausea, vomiting, diarrhea and diffuse abdominal pain 1. Food poisoning 2. Viral gastroenteritis Plan: IV fluid hydration Nausea control Labs-CBC, CMP, Lipase The labs are unremarkable the abdominal exam is nontender. Patient did have some S however HE point house are sick I think that viral etiology is much more likely. I did ask him to come back in 3 days should he have persistent diarrhea or come back sooner for fever bloody diarrhea or any other symptoms or concerns and then cultures could be collected at that time. Dragon Disclaimer Dragon Disclaimer This electronic medical record was generated, in whole or in part, using a voice recognition dictation system. Departure Departure Impression: Primary Impression: Diarrhea Disposition: 01 HOME, SELF-CARE Condition: STABLE Referrals: QING MCKOY MD (PCP) Scripts Ondansetron Hcl (ZOFRAN) 4 Mg Tablet 4 MG PO PRN TID PRN for NAUSEA/VOMITING, #8 nausea/vomiting Prov: VESTA SANTOYO MD 03/15/18 VESTA SANTOYO MD Mar 15, 2018 21:26
[2018-03-15] MEDS ORDERED: ONDANSETRON PF 4 MG/2 ML VIAL. IV ONE (21:30)
[2018-03-15 21:44] LABS: BASO % 0 % (0-3); EOS % 1 % (0-3); HEMATOCRIT 45.6 % (39.0-53.0); HEMOGLOBIN 15.7 g/dL (13.0-17.5); LYMPH # 1.3 x10^3/uL (1.0-4.8); LYMPH % 31 % (24-48); MEAN CORPUSCULAR HEMOGLOBIN 31 pg (25-35); MEAN CORPUSCULAR HGB CONC 34 g/dL (31-37); MEAN CORPUSCULAR VOLUME 91 fL (79-100); MONO # 0.4 x10^3/uL (0.0-1.1); MONO % 10 % (0-9); NEUT # 2.4 x10^3uL (1.8-7.7); NEUT % 58 % (31-73); PLATELET COUNT 129 x10^3/uL (140-400); RED BLOOD COUNT 5.02 x10^6/uL (4.30-5.70); RED CELL DISTRIBUTION WIDTH 13.6 % (11.5-14.5); WHITE BLOOD COUNT 4.1 x10^3/uL (4.0-11.0)
[2018-03-15 21:50] LABS: CALCIUM 8.9 mg/dL (8.5-10.1); CREATININE 0.9 mg/dL (0.7-1.3); GFR 102.8; POTASSIUM 3.9 mmol/L (3.5-5.1)
[2018-03-15 21:56] LABS: ALBUMIN 3.8 g/dL (3.4-5.0); ALBUMIN/GLOBULIN RATIO 1.2 (1.0-1.7); TOTAL BILIRUBIN 0.3 mg/dL (0.2-1.0)
[2018-03-15] MEDS ORDERED: ONDA4TAB7 PO (22:25)
[2018-03-15 22:30] VITALS: BP 92/60
== END 2018-03-15 22:35 | disposition home or self-care (01) ==
LOC: ER 20:50
DX: R19.7 Diarrhea, unspecified (principal); R10.84 Generalized abdominal pain; R11.2 Nausea with vomiting, unspecified; F31.9 Bipolar disorder, unspecified; J45.909 Unspecified asthma, uncomplicated; F90.9 Attention-deficit hyperactivity disorder, unspecified type; Z88.8 Allergy status to other drugs, medicaments and biological substances
CPT/HCPCS: 36415; 80053; 83690; 85025; 96361; 96374; 99284; J2405; J7030

== ENCOUNTER 2018-12-30 17:49 | Emergency (ER) | payer MEDICARE, MEDICAID ==
[~2018-12-30] VITALS: Ht 160 cm; Wt 51.5 kg
[~2018-12-30 17:49] MED LIST changes: +ONDA4TAB7 PO
[2018-12-30 17:55] VITALS: BP 126/71
[2018-12-30] MEDS ORDERED: PERM60CR12 TP (18:05)
--- NOTE | 2018-12-30 18:05 | PHYS DOC ---
Past Medical History Past Medical History: Asthma, Bipolar, Other Additional Past Medical Histor: ADHD Past Surgical History: Tonsillectomy, Other Additional Past Surgical Histo: FUNDOPLICATION, ADDENOIDECTOMY Alcohol Use: Occasionally Drug Use: Marijuana Adult General Chief Complaint Chief Complaint: SKIN RASH/ABSCESS HPI HPI Patient is a 23 year old male presents to the ER for rash has been ongoing since Saturday. He states rash started in his upper arm is progressing up his arm to his neck and back. He states that he has severe itching associated with it. Review of Systems Review of Systems Constitutional: Denies fever or chills [] Eyes: Denies change in visual acuity, redness, or eye pain [] HENT: Denies nasal congestion or sore throat [] Respiratory: Denies cough or shortness of breath [] Cardiovascular: No additional information not addressed in HPI [] GI: Denies abdominal pain, nausea, vomiting, bloody stools or diarrhea [] : Denies dysuria or hematuria [] Musculoskeletal: Denies back pain or joint pain [] Integument: reports rash Neurologic: Denies headache, focal weakness or sensory changes [] Endocrine: Denies polyuria or polydipsia [] Complete systems were reviewed and found to be within normal limits, except as documented in this note. Allergies Allergies Allergies Coded Allergies Type Severity Reaction Last Updated Verified bethanechol Allergy Intermediate 11/14/14 Yes cisapride Allergy Intermediate 11/14/14 Yes Physical Exam Physical Exam Constitutional: Well developed, well nourished, no acute distress, non-toxic appearance. [] HENT: Normocephalic, atraumatic, bilateral external ears normal, oropharynx moist, no oral exudates, nose normal. [] Eyes: PERRLA, EOMI, conjunctiva normal, no discharge. [] Neck: Normal range of motion, no tenderness, supple, no stridor. [] Cardiovascular:Heart rate regular rhythm, no murmur [] Lungs & Thorax: Bilateral breath sounds clear to auscultation [] Abdomen: Bowel sounds normal, soft, no tenderness, no masses, no pulsatile masses. [] Skin: linear macular rash up his right arm and back. Back: No tenderness, no CVA tenderness. [] Extremities: No tenderness, no cyanosis, no clubbing, ROM intact, no edema. [] Neurologic: Alert and oriented X 3, normal motor function, normal sensory function, no focal deficits noted. [] Psychologic: Affect normal, judgement normal, mood normal. [] EKG EKG [] Radiology/Procedures Radiology/Procedures [] Course & Med Decision Making Course & Med Decision Making Pertinent Labs and Imaging studies reviewed. (See chart for details) Appears to be scabies. Will treat. Dragon Disclaimer Dragon Disclaimer This electronic medical record was generated, in whole or in part, using a voice recognition dictation system. Departure Departure Impression: Primary Impression: Scabies Disposition: 01 HOME, SELF-CARE Condition: STABLE Referrals: QING MCKOY MD (PCP) Patient Instructions: Scabies Additional Instructions: Thank you for visiting [facility]. We appreciate you trusting us with your care. If any additional problems come up don't hesitate to return to visit us. Please follow up with your primary care provider so they can plan additional care if needed and know about the problem that you had. If symptoms worsen come back to the Emergency Department. Any concerning symptoms that start such as chest pain, shortness of air, weakness or numbness on one side of the body, running high fevers or any other concerning symptoms return to the ER. Please fill your medications at any pharmacy and follow the prescription instructions. Please use the medication once and apply again a week later. Scripts Permethrin (PERMETHRIN) 60 Gm Cream..g. 1 SANDER TP ONCE, #60 GM 1 Refill Please apply once and then apply again a week later. Remove after 8-14 hours by showering. Prov: YUAN CARTWRIGHT APRN 12/30/18 YUAN CARTWRIGHT APRN Dec 30, 2018 18:05
== END 2018-12-30 18:10 | disposition home or self-care (01) ==
LOC: ER 17:49
DX: B86 Scabies (principal); J45.909 Unspecified asthma, uncomplicated; F31.9 Bipolar disorder, unspecified; Z90.89 Acquired absence of other organs; Z88.8 Allergy status to other drugs, medicaments and biological substances
CPT/HCPCS: 99282

== ENCOUNTER 2019-01-16 22:52 | Emergency (ER) | payer MEDICARE, MEDICAID ==
[~2019-01-16] VITALS: Ht 160 cm; Wt 54.0 kg
[~2019-01-16 22:52] MED LIST changes: +PERM60CR12 TP
[2019-01-16 22:53] VITALS: BP 123/62
[2019-01-16] MEDS ORDERED: IPRATRPIUM/ALBUTEROL 0.5/2.5MG 3 ML NEBU. NEB ONE (23:15)
[2019-01-16] MEDS ORDERED: predniSONE 10 MG TABLET PO ONE (23:15)
[2019-01-16] MEDS ORDERED: BENZONATATE 100 MG CAPSULE. PO ONE (23:15)
[2019-01-16] MEDS ORDERED: ALBU2.5V8 IH (23:36)
--- NOTE | 2019-01-16 23:37 | PHYS DOC ---
Past Medical History Past Medical History: Anxiety, Asthma, Bipolar, Depression, Other Additional Past Medical Histor: ADHD, mood disorder (CATHY CHING APRN) Past Surgical History: Tonsillectomy, Other Additional Past Surgical Histo: FUNDOPLICATION, ADDENOIDECTOMY (CATHY CHING APRN) Alcohol Use: Occasionally Drug Use: Marijuana (CATHY CHING APRN) Adult General Chief Complaint Chief Complaint: COUGH HPI HPI Patient is a 23 year old male with history of asthma, depression, anxiety, who presents to the ED today complaining of cough and nasal congestion since yesterday. Patient denies any fever. He states is moving to [facility] in a month and will get a PCP there (CATHY CHING APRN) Review of Systems Review of Systems Constitutional: Denies fever or chills [] Eyes: Denies change in visual acuity, redness, or eye pain [] HENT: Reports nasal congestion, denies sore throat [] Respiratory: Reports cough, denies shortness of breath [] Cardiovascular: No additional information not addressed in HPI [] GI: Denies abdominal pain, nausea, vomiting, bloody stools or diarrhea [] : Denies dysuria or hematuria [] Musculoskeletal: Denies any back pain Integument: Denies rash or skin lesions [] Neurologic: Denies headache, focal weakness or sensory changes [] All other systems were reviewed and found to be within normal limits, except as documented in this note. (CATHY CHING APRN) Current Medications Current Medications Current Medications Medications (Trade) Dose Ordered Sig/Ramakrishna Start Time Stop Time Status Last Admin Dose Admin Albuterol/ Ipratropium (Duoneb) 3 ml 1X ONCE 01/16/19 23:15 01/16/19 23:16 DC 01/16/19 23:27 3 ML Benzonatate (Tessalon Perle) 100 mg 1X ONCE 01/16/19 23:15 01/16/19 23:16 DC 01/16/19 23:22 100 MG Prednisone (Prednisone) 50 mg 1X ONCE 01/16/19 23:15 01/16/19 23:16 DC 01/16/19 23:22 50 MG (VESTA SANTOYO MD) Allergies Allergies Allergies Coded Allergies Type Severity Reaction Last Updated Verified bethanechol Allergy Intermediate 11/14/14 Yes cisapride Allergy Intermediate 11/14/14 Yes Sulfa (Sulfonamide Antibiotics) Allergy Mild RASH 01/16/19 Yes (VESTA SANTOYO MD) Physical Exam Physical Exam Constitutional: Well developed, well nourished, no acute distress, non-toxic appearance. [] HENT: Normocephalic, atraumatic, bilateral external ears normal, oropharynx moist, no oral exudates, nose normal. [] Eyes: PERRLA, EOMI, conjunctiva normal, no discharge. [] Neck: Normal range of motion, no tenderness, supple, no stridor. [] Cardiovascular:Heart rate regular rhythm, no murmur [] Lungs & Thorax: Bilateral breath sounds clear to auscultation [] Abdomen: Bowel sounds normal, soft, no tenderness, no masses, no pulsatile masses. [] Skin: Warm, dry, no erythema, no rash. [] Back: No tenderness, no CVA tenderness. [] Extremities: No tenderness, no cyanosis, no clubbing, ROM intact, no edema. [] Neurologic: Alert and oriented X 3, normal motor function, normal sensory function, no focal deficits noted. [] Psychologic: Affect normal, judgement normal, mood normal. [] (CATHY CHING APRN) Current Patient Data Vital Signs Vital Signs Date Time Temp Pulse Resp B/P (MAP) Pulse Ox O2 Delivery O2 Flow Rate FiO2 01/16/19 23:30 Room Air 01/16/19 22:53 98.1 71 18 123/62 (82) 98 98.1 (VESTA SANTOYO MD) EKG EKG [] (CATHY CHING APRN) Radiology/Procedures Radiology/Procedures [] (CATHY CHING APRN) Course & Med Decision Making Course & Med Decision Making Pertinent Labs and Imaging studies reviewed. (See chart for details) This is a 23-year-old male patient with history of asthma presenting today with cough and nasal congestion since yesterday. Symptoms are likely viral. Give him up prescription for albuterol inhaler. OTC cough medications recommended. Follow-up with PCP in 1-2 weeks. (CATHY CHING APRN) Course & Med Decision Making Staff Physician Addendum: I was working in the ER during the course of this patient's visit. I was available for consultation as needed, but I was not directly involved in the care of this patient. (VESTA SANTOYO MD) Dragon Disclaimer Dragon Disclaimer This electronic medical record was generated, in whole or in part, using a voice recognition dictation system. (CATHY CHING APRN) Departure Departure Impression: Primary Impression: Cough Additional Impression: URI (upper respiratory infection) Disposition: HOME, SELF-CARE Condition: STABLE Referrals: QING MCKOY MD (PCP) follow up next week Patient Instructions: Cough, Adult, [id number], Upper Respiratory Infection, Adult, [id number] Additional Instructions: You were evaluated in the emergency room for symptoms consistent of an upper respiratory infection. Use [id number] cold medications as needed. Use the breathing treatments as ordered. Follow-up with your doctor in 1-2 weeks. Scripts Albuterol Sulfate (PROVENTIL HFA INHALER) 6.7 Gm Hfa.aer.ad 1 PUFF IH PRN Q4HRS PRN for FOR ASTHMA, #1 INHALER 0 Refills Prov: CATHY CHING APRN 01/16/19 Problem Qualifiers Additional Impression: URI (upper respiratory infection) URI type: unspecified URI Qualified Codes: J06.9 - Acute upper respiratory infection, unspecified CATHY CHING APRN Jan 16, 2019 23:36 EVSTA SANTOYO MD Jan 17, 2019 03:50
== END 2019-01-16 23:43 | disposition home or self-care (01) ==
LOC: ER 22:52
DX: J06.9 Acute upper respiratory infection, unspecified (principal); F41.9 Anxiety disorder, unspecified; F31.9 Bipolar disorder, unspecified; Z90.89 Acquired absence of other organs
CPT/HCPCS: 94640; 99283; J7512; J7620

== ENCOUNTER 2019-02-17 20:09 | Emergency (ER) | payer MEDICARE, MEDICAID ==
[~2019-02-17] VITALS: Ht 160 cm; Wt 53.1 kg
[~2019-02-17 20:09] MED LIST changes: +PROVENTIL HFA6.7 GM IH
[2019-02-17 20:20] VITALS: BP 122/75
--- NOTE | 2019-02-17 20:48 | PHYS DOC ---
Past Medical History Past Medical History: Anxiety, Asthma, Bipolar, Depression, Other Additional Past Medical Histor: ADHD, mood disorder (CATHY CHING APRN) Past Surgical History: Tonsillectomy, Other Additional Past Surgical Histo: FUNDOPLICATION, ADDENOIDECTOMY (CATHY CHING APRN) Alcohol Use: Occasionally Drug Use: Marijuana (CATHY CHING APRN) Attending Signature I have participated in the care of this patient and I have reviewed and agree with all pertinent clinical information above including history, exam, and recommendations. (CHRISTY GRAF MD) Adult General Chief Complaint Chief Complaint: SKIN PROBLEM HPI HPI Patient is a 23 year old 23-year-old male patient who presents to the ED today with an abscess on the left buttock that he noted 3 days ago. Patient denies any drainage from the area. (CATHY CHING APRN) Review of Systems Review of Systems Constitutional: Denies fever or chills [] Musculoskeletal: Denies back pain or joint pain [] Integument: Reports an abscess on the left buttock Neurologic: Denies headache, focal weakness or sensory changes [] All other systems were reviewed and found to be within normal limits, except as documented in this note. (CATHY CHING APRN) Current Medications Current Medications Current Medications Medications (Trade) Dose Ordered Sig/Ramakrishna Start Time Stop Time Status Last Admin Dose Admin Ceftriaxone Sodium (Rocephin Im) 1 gm 1X ONCE 02/17/19 21:15 02/17/19 21:16 DC 02/17/19 21:15 1 GM Clindamycin HCl (Cleocin) 300 mg 1X ONCE 02/17/19 21:15 02/17/19 21:16 DC 02/17/19 21:15 300 MG Lidocaine HCl (Xylocaine-Mpf 1% 2ml Vial) 2 ml 1X ONCE 02/17/19 21:15 02/17/19 21:16 DC 02/17/19 21:15 2 ML (CHRISTY GRAF MD) Allergies Allergies Allergies Coded Allergies Type Severity Reaction Last Updated Verified bethanechol Allergy Intermediate 11/14/14 Yes cisapride Allergy Intermediate 11/14/14 Yes Sulfa (Sulfonamide Antibiotics) Allergy Mild RASH 01/16/19 Yes (CHRISTY GRAF MD) Physical Exam Physical Exam Constitutional: Well developed, well nourished, no acute distress, non-toxic appearance. [] Skin: Warm, dry, left inner buttock with an indurated area approximately 0.5 x 0.5 cm with no fluctuance. The areas and tender to touch with cellulitis. The area is warm. Back: No tenderness, no CVA tenderness. [] Extremities: No tenderness, no cyanosis, no clubbing, ROM intact, no edema. [] Neurologic: Alert and oriented X 3, normal motor function, normal sensory functi on, no focal deficits noted. [] Psychologic: Affect normal, judgement normal, mood normal. [] (CATHY CHING APRN) Current Patient Data Vital Signs Vital Signs Date Time Temp Pulse Resp B/P (MAP) Pulse Ox O2 Delivery O2 Flow Rate FiO2 02/17/19 20:20 97.7 91 16 122/75 (91) 98 Room Air 97.7 (CHRISTY GRAF MD) EKG EKG [] (CATHY CHING APRN) Radiology/Procedures Radiology/Procedures [] (CATHY CHING APRN) Course & Med Decision Making Course & Med Decision Making Pertinent Labs and Imaging studies reviewed. (See chart for details) This is a 23-year-old male patient who presents to the ED today with an abscess on the left buttock that is not ready to be drained. Patient was given Rocephin IM and discharged on clindamycin. Follow-up with PCP or the provided general surgeon in one to 2 weeks. Warm compresses recommended to the area. Tetanus up-to-date. (CATHY CHING APRN) Dragon Disclaimer Dragon Disclaimer This electronic medical record was generated, in whole or in part, using a voice recognition dictation system. (CATHY CHING APRN) Departure Departure Impression: Primary Impression: Abscess of buttock, left Disposition: 01 HOME, SELF-CARE Condition: STABLE Referrals: UNKNOWN PCP NAME (PCP) MALKA NELSON MD follow up next week with your doctor Patient Instructions: Abscess, [id number] Additional Instructions: You have an abscess on her buttock. Please apply warm compresses to the area twice a day. Take the prescribed antibiotics until completed. Follow-up with your own doctor the provided general surgeon in one to 2 weeks. Scripts Tramadol Hcl (TRAMADOL HCL) 50 Mg Tablet 50 MG PO Q6HRS PRN for PAIN, #30 TAB Prov: CATHY CHING APRN 02/17/19 Clindamycin Hcl (CLINDAMYCIN HCL) 300 Mg Capsule 1 CAP PO TID, #21 CAP Prov: CATHY CHING APRN 02/17/19 CATHY CHING APRN Feb 17, 2019 20:48 CHRISTY GRAF MD Feb 18, 2019 00:33
[2019-02-17] MEDS ORDERED: CLIN300C8 PO (21:04)
[2019-02-17] MEDS ORDERED: TRAM50TA PO (21:04)
[2019-02-17] MEDS ORDERED: LIDOCAINE 1% PF 2 ML VIAL. INJ ONE (21:15)
[2019-02-17] MEDS ORDERED: CLINDAMYCIN HCL 150 MG CAPSULE. PO ONE (21:15)
[2019-02-17] MEDS ORDERED: cefTRIAXone IM 1 GM VIAL IM ONE (21:15)
== END 2019-02-17 21:20 | disposition home or self-care (01) ==
LOC: ER 20:09
DX: L02.31 Cutaneous abscess of buttock (principal); F31.9 Bipolar disorder, unspecified; F90.9 Attention-deficit hyperactivity disorder, unspecified type; J45.909 Unspecified asthma, uncomplicated; Z88.2 Allergy status to sulfonamides; Z88.8 Allergy status to other drugs, medicaments and biological substances
CPT/HCPCS: 96372; 99283; J0696; 99284

== ENCOUNTER 2019-09-11 22:53 | Emergency (ER) | payer MEDICARE, MEDICAID ==
[~2019-09-11 22:53] MED LIST changes: +CLIN300C8 PO; +TRAM50TA PO
== END 2019-09-11 23:10 ==
LOC: ER 22:53
DX: R21 Rash and other nonspecific skin eruption (principal); Z53.21 Procedure and treatment not carried out due to patient leaving prior to being seen by health care provider